=== PATIENT | male | born 1975 | race Caucasian/White ===

== ENCOUNTER 2022-05-02 13:47 | Emergency (ER) | payer MEDICAID ==
[~2022-05-02] VITALS: Ht 170.2 cm; Wt 85.0 kg
[2022-05-02 14:19] VITALS: BP 177/100
[2022-05-02] MEDS ORDERED: IBUPROFEN 600MG TABLET PO STA (19:21)
[2022-05-02 20:11] LABS: BASOPHILS % 1.1 % (0.0-2.0); HEMATOCRIT. 46.1 % (42.0-52.0); HEMOGLOBIN. 15.6 g/dL (14.0-18.0); MEAN CORPUSCULAR HEMOGLOBIN 31.1 pg (28.0-32.0); MEAN CORPUSCULAR VOLUME 91.7 fL (80.0-94.0); MEAN PLATELET VOLUME 9.3 fl (7.4-10.4); MONOCYTES % 12.2 % (2.0-8.0); NEUTROPHILS % 55.7 % (40.0-76.0); PLATELET 243 x1000/uL (130-400); RED BLOOD CELL COUNT 5.02 mill/uL (4.7-6.1)
[2022-05-02 20:24] LABS: CHLORIDE 102 mEq/L (98-107)
[2022-05-02] MEDS ORDERED: IBUP-2029 MT (20:50)
== END 2022-05-02 21:00 | disposition home or self-care (01) ==
LOC: ER 14:20
DX: R07.89 Other chest pain (principal); I10 Essential (primary) hypertension
CPT/HCPCS: 36415; 71045; 80053; 84484; 85025; 93005; 99285